=== PATIENT | female | born 1980 | race Caucasian/White ===

== ENCOUNTER 2019-09-18 14:35 | Emergency (ER) | payer MEDICAID ==
[~2019-09-18] VITALS: Ht 162.6 cm; Wt 83.9 kg
[2019-09-18 14:46] VITALS: BP_SYST 167
[2019-09-18] MEDS ORDERED: KETOROLAC TROMETHAMINE 60 MG/2 ML VIAL IM ONE (16:00)
[2019-09-18 16:40] VITALS: BP_SYST 142
[2019-09-18 16:45] LABS: BARBITURATE, URINE NEGATIVE (NEG <=200); BENZODIAZEPINE, URINE NEGATIVE (NEG <=150); CANNABINOID, URINE POSITIVE (NEG <=50); COCAINE, URINE NEGATIVE (NEG <=150); METHAMPHETAMINES SCREEN,URINE NEGATIVE (NEG <=500); OPIATE, URINE NEGATIVE (NEG <=100); PHENCYCLIDINE SCREEN,URINE NEGATIVE (NEG <=25); UR TRICYCLIC ANTIDEPRESSANTS NEGATIVE (NEG <=300); URINE AMPHETAMINE NEGATIVE (NEG <=500); URINE METHADONE NEGATIVE (NEG <=200); URINE OXYCODONE SCREEN NEGATIVE (NEG <=100); URINE PROPOXYPHENE SCREEN NEGATIVE (NEG <=300)
== END 2019-09-18 16:40 | disposition home or self-care (01) ==
LOC: SED 14:35
DX: K08.89 Other specified disorders of teeth and supporting structures (principal); G43.909 Migraine, unspecified, not intractable, without status migrainosus; Z98.51 Tubal ligation status; Z88.6 Allergy status to analgesic agent; Z88.1 Allergy status to other antibiotic agents
CPT/HCPCS: 80307; 81002; 81025; 96372; 99283; J1885

== ENCOUNTER 2020-04-04 15:40 | Emergency (ER) | payer MEDICAID ==
[~2020-04-04] VITALS: Ht 162.6 cm; Wt 87.1 kg
[2020-04-04 15:49] VITALS: BP_SYST 120
--- NOTE | 2020-04-04 16:55 | NUR ---
Patient to ER bed 02 to gown for evaluation. Side rails up.
--- NOTE | 2020-04-04 16:57 | NUR ---
Patient arrived in the ED c/o back and neck pain after falling off a water slide. Denied any chest pain or shortness of breath. Denied any fevers, chills, nausea or vomiting. Patient is alert and oriented x4, respirations even and unlabored, speaking in full sentences, and ambulating with a steady gait. VSS, pain level 8/10. Informed of the approximate wait time. Instructed to notify ED staff for any changes in condition or worsening of symptoms while waiting to be seen by an ED provider. Patient verbalized understanding.
--- NOTE | 2020-04-04 16:59 | NUR ---
ER JOVANY Liao at bedside examining patient.
--- NOTE | 2020-04-04 17:10 | NUR ---
Administered Toradol IM and Zofran PO as ordered by ER PRACTICE PERFORMANCE MANAGER Karley Liao. Patient tolerated the medications well. See eMAR for details.
[2020-04-04] MEDS ORDERED: KETOROLAC TROMETHAMINE 60 MG/2 ML VIAL IM ONE (17:15)
[2020-04-04] MEDS ORDERED: ONDANSETRON 4 MG ODT TAB PO ONE (17:15)
[2020-04-04] MEDS ORDERED: MORPHINE SULFATE 10 MG/ML VIAL IM ONE (18:45)
[2020-04-04] MEDS ORDERED: DIPHENHYDRAMINE INJ 50 MG/ML VIAL IM ONE (18:45)
[2020-04-04] MEDS ORDERED: HYDROcodone/ACETAMIN 7.5-325 MG TAB PO ONE (18:45)
--- NOTE | 2020-04-04 19:15 | NUR ---
Pt report received. Pt verbalizes improvement in pain, NAD.
[2020-04-04 19:30] VITALS: BP_SYST 143
--- NOTE | 2020-04-04 19:30 | NUR ---
Note gretta in ED - 04/05/20 at 0840 by NIRMALAJ Pt report received. Pt verbalizes improvement in pain, NAD.
--- NOTE | 2020-04-04 19:30 | NUR ---
Patient given written and verbal discharge instructions and verbalizes understanding. ER MD discussed with patient the results and treatment provided. Patient in stable condition. ID arm band removed. Rx of Flexeril, Tylenol, Zofran given. Patient educated on pain management and to follow up with PMD. Pain Scale 0/10. Opportunity for questions provided and answered. Medication side effect fact sheet provided.
== END 2020-04-04 19:30 | disposition home or self-care (01) ==
LOC: SED 15:40
DX: S16.1XXA Strain of muscle, fascia and tendon at neck level, initial encounter (principal); I10 Essential (primary) hypertension; Z79.899 Other long term (current) drug therapy; Z88.1 Allergy status to other antibiotic agents; Z88.6 Allergy status to analgesic agent; W18.39XA Other fall on same level, initial encounter; Y93.89 Activity, other specified; Y92.89 Other specified places as the place of occurrence of the external cause; Y99.8 Other external cause status
CPT/HCPCS: 72125; 81025; 96372; 99284; J1200; J1885; J2270; Q0162

== ENCOUNTER 2021-11-25 18:04 | Emergency (ER) | payer MEDICAID ==
[~2021-11-25] VITALS: Ht 162.6 cm; Wt 83.9 kg
[2021-11-25 18:08] VITALS: BP_SYST 148
[2021-11-25] MEDS ORDERED: HYDROcodone/ACETAMIN 5-325 MG TAB (NORCO/ VICODIN) PO ONE (19:15)
[2021-11-25] MEDS ORDERED: KETOROLAC TROMETHAMINE 30 MG VIAL IM ONE (19:15)
[2021-11-25] MEDS ORDERED: METH-634 PO (19:15)
[2021-11-25 19:41] VITALS: BP_SYST 143
== END 2021-11-25 19:40 | disposition home or self-care (01) ==
LOC: SED 18:04
DX: M54.50 Low back pain, unspecified (principal); I10 Essential (primary) hypertension; Z88.1 Allergy status to other antibiotic agents
CPT/HCPCS: 99283

== ENCOUNTER 2023-01-11 13:49 | Emergency (ER) | payer MEDICAID ==
[~2023-01-11] VITALS: Ht 162.6 cm; Wt 81.6 kg
[~2023-01-11 13:49] MED LIST: METH-634 PO
[2023-01-11 14:03] VITALS: BP_SYST 173
[2023-01-11] MEDS ORDERED: IBUP-1969 PO (14:29)
[2023-01-11] MEDS ORDERED: AMOX500C2 PO (14:29)
[2023-01-11] MEDS ORDERED: TRAM50TA2 PO (14:29)
[2023-01-11] MEDS ORDERED: KETOROLAC TROMETHAMINE 60 MG/2 ML VIAL IM ONE (14:30)
[2023-01-11] MEDS ORDERED: HYDROcodone/ACETAMIN 10-325 MG TAB PO ONE (14:30)
[2023-01-11] MEDS ORDERED: HYDROcodone/ACETAMIN 10-325 MG TAB ONE (14:54)
[2023-01-11 15:24] VITALS: BP_SYST 173
== END 2023-01-11 15:25 | disposition home or self-care (01) ==
LOC: SED 13:49
DX: K04.7 Periapical abscess without sinus (principal); K08.89 Other specified disorders of teeth and supporting structures; I10 Essential (primary) hypertension; Z88.1 Allergy status to other antibiotic agents; Z79.899 Other long term (current) drug therapy
CPT/HCPCS: 99283; 96372; J1885

== ENCOUNTER 2023-03-22 12:07 | Emergency (ER) | payer MEDICAID ==
[~2023-03-22] VITALS: Ht 162.6 cm; Wt 83.0 kg
[~2023-03-22 12:07] MED LIST changes: +AMOX500C2 PO; +IBUP-1969 PO; +TRAM50TA2 PO
[2023-03-22 12:13] VITALS: BP_SYST 152; PULSE 93; RESP 20; TEMP 97.3; O2SAT 99
--- NOTE | 2023-03-22 12:27 | NUR ---
Patient to ER bed 2 for evaluation. Patient being evaluated by MD at this time. Report given to ROMEL Quintero charge and ROMEL Walters.
--- NOTE | 2023-03-22 12:29 | NUR ---
BIB PT VIA PRIVATE CAR C/O THROBBING HEADACHE STARTED THIS MORNING. PT HAS BEEN DIAGNOSED WITH MIGRAINE FEW YEARS AGO. PT REPORTS THROBBING HEADACHE ON HER LEFT SIDE. REPORTS NAUSEA BUT NO VOMITING. NO BLURRING OF VISION. A/OX4, G[facility]15 AMBULATORY, STABLE.
[2023-03-22] MEDS ORDERED: HYDROcodone/ACETAMIN 10-325 MG TAB PO ONE (12:30)
[2023-03-22] MEDS ORDERED: KETOROLAC TROMETHAMINE 60 MG/2 ML VIAL IM ONE (12:30)
[2023-03-22 12:48] LABS: BASOPHILS % (AUTO) 0.8 % (0.0-2.0); EOSINOPHILS # (AUTO) 0.1 K/uL (0.0-0.4); EOSINOPHILS % (AUTO) 0.8 % (0.0-4.0); HEMATOCRIT 40.1 % (36-48); HEMOGLOBIN 13.4 g/dL (12.0-16.0); LYMPHOCYTES # (AUTO) 1.9 K/uL (1.0-5.5); LYMPHOCYTES % (AUTO) 30.5 % (20.5-51.5); MEAN CORPUSCULAR HEMOGLOBIN 29 pg (27-31); MEAN CORPUSCULAR HGB CONC 33 % (32-36); MEAN CORPUSCULAR VOLUME 86 fL (79.0-98.0); MONOCYTES # (AUTO) 0.4 K/uL (0.0-1.0); MONOCYTES % (AUTO) 6.8 % (1.7-9.3); NEUTROPHILS # (AUTO) 3.8 K/uL (1.8-7.7); NEUTROPHILS % (AUTO) 61.1 % (40.0-70.0); PLATELET COUNT (AUTO) 329 K/uL (130-430); RED BLOOD CELL COUNT(AUTO) 4.68 MIL/uL (4.2-6.2); RED CELL DISTRIBUTION WIDTH 13.8 % (9.0-15.0); WHITE BLOOD COUNT (AUTO) 6.2 K/uL (4.8-10.8)
[2023-03-22 12:53] LABS: ERYTHROCYTE SEDIMENTATION RATE 2 MM/HR (0-20)
[2023-03-22 13:01] LABS: CALCIUM 8.2 mg/dL (8.4-11.0); CREATININE 0.64 mg/dL (0.55-1.30)
[2023-03-22 13:14] LABS: TOTAL BILIRUBIN 0.4 mg/dL (0.0-1.0)
[2023-03-22] MEDS ORDERED: METOCLOPRAMIDE HCL 10 MG/2 ML VIAL IVP ONE (13:45)
[2023-03-22] MEDS ORDERED: DIPHENHYDRAMINE INJ 50 MG/ML VIAL IVP ONE (13:45)
--- NOTE | 2023-03-22 14:10 | NUR ---
PT BROUGHT TO CT SCAN ACCOMPANIED BY [employer]. PT NOT IN DISTRESS.
[2023-03-22] MEDS ORDERED: TRAM50TA2 PO (14:27)
[2023-03-22] MEDS ORDERED: IBUP-1969 PO (14:27)
[2023-03-22 15:52] VITALS: BP_SYST 161; PULSE 74; RESP 18; TEMP 98; O2SAT 97
--- NOTE | 2023-03-22 15:54 | NUR ---
Patient given written and verbal discharge instructions and verbalizes understanding. ER MD discussed with patient the results and treatment provided. Patient in stable condition. ID arm band removed. IV catheter removed intact and dressing applied, no active bleeding. Rx of ibuprofen and tramadol given. Patient educated on pain management and to follow up with PMD. Pain Scale 7/10. Opportunity for questions provided and answered. Medication side effect fact sheet provided.
== END 2023-03-22 15:54 | disposition home or self-care (01) ==
LOC: SED 12:07
DX: G43.909 Migraine, unspecified, not intractable, without status migrainosus (principal); I10 Essential (primary) hypertension; Z88.1 Allergy status to other antibiotic agents; Z79.899 Other long term (current) drug therapy
CPT/HCPCS: 99285; 96374; 70450; 96375; 80053; 85025; 85651; 36415; 76376; 96372; 82397; J1200; J1885; J2765